=== PATIENT | male | born 1980 | race American Indian/Alaskan Native ===

== ENCOUNTER 2016-12-12 22:01 | Emergency (ER) | payer OTHER ==
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
[2016-12-13] MEDS ORDERED: VALIUM PO ONE (04:30)
[2016-12-13] MEDS ORDERED: MOTRIN PO ONE (04:30)
[2016-12-13 06:01] VITALS: BP 127/96
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
== END 2016-12-13 06:00 | disposition home or self-care (01) ==
LOC: ED 22:01
DX: M79.601 Pain in right arm (principal); M25.562 Pain in left knee; F17.200 Nicotine dependence, unspecified, uncomplicated; V89.2XXA Person injured in unspecified motor-vehicle accident, traffic, initial encounter; Y93.9 Activity, unspecified; Y99.9 Unspecified external cause status; Y92.410 Unspecified street and highway as the place of occurrence of the external cause